=== PATIENT | female | born 1930 | race Caucasian/White ===

== ENCOUNTER 2016-12-21 09:06 | Emergency (ER) | payer MEDICARE, OTHER ==
[~2016-12-21] VITALS: Ht 149.9 cm; Wt 65.0 kg
[2016-12-21] MEDS ORDERED: SODIUM CHLORIDE 0.9% 1,000 ML IV ONE (09:13)
[2016-12-21] MEDS ORDERED: MORPHINE SULFATE 4 MG/ML, 1ML ONE ×2 (09:23→10:21)
[2016-12-21] MEDS ORDERED: ONDANSETRON 2MG/ML, 2ML ONE (09:23)
[2016-12-21] MEDS: MORPHINE SULFATE 4 MG/ML, 1ML IVPush PRN ×2 (09:27→10:25)
[2016-12-21] MEDS ORDERED: ONDANSETRON 2MG/ML, 2ML IVPush ONE (09:30)
[2016-12-21] MEDS ORDERED: SODIUM CHLORIDE FLUSH 10ML SYR IVF ONE (09:30)
[2016-12-21] MEDS ORDERED: CALC1CAP8 PO (09:43)
[2016-12-21] MEDS ORDERED: LOSA25TA2 PO (09:43)
[2016-12-21] MEDS ORDERED: CYAN200014 PO (09:43)
[2016-12-21] MEDS ORDERED: SIMV5TAB PO (09:43)
[2016-12-21] MEDS ORDERED: HYDR12.58 PO (09:43)
[2016-12-21] MEDS ORDERED: ASPI-621 PO (09:43)
[2016-12-21 09:49] LABS: ASPARTATE AMINO TRANSFERASE 18 U/L (15-37); BLOOD UREA NITROGEN 24 mg/dL (7-18)
[2016-12-21] MEDS ORDERED: PROPOFOL 10 MG/ML, 20ML IVP ONE (10:30)
[2016-12-21] MEDS ORDERED: PROPOFOL 10 MG/ML, 20ML ONE (10:40)
[2016-12-21 12:11] VITALS: BP 114/44
== END 2016-12-21 13:07 | disposition home or self-care (01) ==
LOC: ED 10:40
DX: T84.021A Dislocation of internal left hip prosthesis, initial encounter (principal); M25.512 Pain in left shoulder; R51 Headache; I10 Essential (primary) hypertension; E78.5 Hyperlipidemia, unspecified; Z87.891 Personal history of nicotine dependence; Z96.643 Presence of artificial hip joint, bilateral; W18.2XXA Fall in (into) shower or empty bathtub, initial encounter; Y93.E1 Activity, personal bathing and showering; Y92.091 Bathroom in other non-institutional residence as the place of occurrence of the external cause; Y99.8 Other external cause status
CPT/HCPCS: 27250; 36415; 70450; 71010; 73030; 73502; 80053; 85025; 85610; 85730; 93005; 96361; 96374; 96375; 99152; 99153; 99285; J2405; J7030